=== PATIENT | male | born 1960 | race Caucasian/White ===

== ENCOUNTER 2020-04-15 04:09 | Observation (INO) | payer BC ==
--- NOTE | 2020-04-15 04:11 | ED ---
Chest Pain HPI - General Stated Complaint: CHEST PAIN Source: RN notes reviewed, old records reviewed Mode of arrival: EMS Limitations: no limitations - History of Present Illness Initial Comments: This is a 59-year-old male DF for evaluation patient from the site severe pain epigastric chest pain. Patient's pain is and persistent mildly diaphoretic shortness of breath. No fevers no significant cough or congestion currently. No significant travel history with no recent hospitalizations. Patient does suffer from heart surgery valve replacement. As well as atrial fibrillation high blood pressure on anticoagulation MD Complaint: chest pain -: hour(s) Onset: during rest, awoke with symptoms Pain Location: epigastric Severity: severe Severity scale (1-10): 8 Quality: tightness, heaviness Consistency: constant Improves With: nothing Worsens With: nothing Anginal Symptoms: nausea, diaphoresis, dyspnea Other Symptoms: palpitations Treatments Prior to Arrival: none - Related Data Home Medications Medication Instructions Recorded Confirmed Cholecalciferol [Vitamin D3 (25 1,000 unit PO DAILY 05/04/18 05/08/18 Mcg = 1000 Iu)] Pantoprazole [Protonix] 40 mg PO DAILY 05/04/18 05/08/18 Warfarin Sodium [Coumadin] 4 mg PO DAILY 05/04/18 05/08/18 Previous Rx's Medication Instructions Recorded Docusate [Colace] 100 mg PO BID #20 capsule 05/08/18 HYDROcodone/APAP 7.5-325MG [[place] 1 tab PO Q4H PRN 3 Days #18 tab 05/08/18 7.5-325] carvediloL [Coreg*] 12.5 mg PO BID-W/MEALS #60 tab 05/10/18 Allergies Allergy/AdvReac Type Severity Reaction Status Date / Time No Known Allergies Allergy Verified 05/08/18 14:56 Review of Systems ROS Statement: Those systems with pertinent positive or pertinent negative responses have been documented in the HPI. ROS Other: All systems not noted in ROS Statement are negative. EKG Findings - EKG Comments: EKG Findings:: EKG shows A. fib of 92 QRS 160 QTC 494 Past Medical History Past Medical History: Atrial Fibrillation, GERD/Reflux Additional Past Medical History / Comment(s): "fatty spots of liver", 2 bulging disc, 2 herniated disc lower back with DDD. History of Any Multi-Drug Resistant Organisms: None Reported Past Surgical History: Cardiac Ablation, Cardiac Valve Replacement Additional Past Surgical History / Comment(s): open heart with mvp replacement with maze procedure. cardioversion x2, occasional vertigo. shingles 2018 Past Anesthesia/Blood Transfusion Reactions: No Reported Reaction Past Psychological History: No Psychological Hx Reported Past Alcohol Use History: None Reported Additional Past Alcohol Use History / Comment(s): rare social smoker 20 years ago - Past Family History Father Family Medical History: Liver Disease Additional Family Medical History / Comment(s): cirrhosis liver Sister(s) Family Medical History: Cancer, COPD, Deep Vein Thrombosis (DVT) General Exam General appearance: alert, in no apparent distress, anxious Head exam: Present: atraumatic, normocephalic, normal inspection Eye exam: Present: normal appearance, PERRL, EOMI. Absent: scleral icterus, conjunctival injection, periorbital swelling ENT exam: Present: normal exam, mucous membranes moist Neck exam: Present: normal inspection. Absent: tenderness, meningismus, lymphadenopathy Respiratory exam: Present: normal lung sounds bilaterally. Absent: respiratory distress, wheezes, rales, rhonchi, stridor Cardiovascular Exam: Present: regular rate, normal rhythm, normal heart sounds. Absent: systolic murmur, diastolic murmur, rubs, gallop, clicks GI/Abdominal exam: Present: soft, normal bowel sounds. Absent: distended, tenderness, guarding, rebound, rigid Extremities exam: Present: normal inspection, full ROM, normal capillary refill. Absent: tenderness, pedal edema, joint swelling, calf tenderness Back exam: Present: normal inspection Neurological exam: Present: alert, oriented X3, CN II-XII intact Psychiatric exam: Present: normal affect, normal mood Skin exam: Present: warm, dry, intact, normal color. Absent: rash Course Vital Signs 04/15/20 04/15/20 04/15/20 04:10 04:22 04:41 Temperature 97.6 F Pulse Rate 103 H 92 95 Respiratory 18 16 18 Rate Blood Pressure 164/126 173/113 168/114 O2 Sat by Pulse 96 99 98 Oximetry 04/15/20 04/15/20 04/15/20 04:48 04:58 05:20 Temperature Pulse Rate 92 78 Respiratory 18 18 Rate Blood Pressure 165/118 156/103 155/111 O2 Sat by Pulse 100 98 Oximetry - Reevaluation(s) Reevaluation #1: 04/15/20 05:29 Medical records reviewed Reevaluation #2: 04/15/20 05:29 Blood pressure and pain control improved Reevaluation #3: 04/15/20 05:29 Patient continues here with shortness of breath. Chest pain. - Consultations Consultation #1: Spoke with Dr. Petit we will admit for cardiology to evaluate Chest Pain MDM - MDM 59 male Araceli anticoagulated coming in for chest pain observation with a mild pancreatitis. Patient be admitted for pain control Critical Care Time Critical Care Time: Yes Total Critical Care Time: 31 Disposition Clinical Impression: Chest pain, Pancreatitis, Hypertension Disposition: ADMITTED IP TO THIS [facility] Condition: Fair Is patient prescribed a controlled substance at d/c from ED?: No Referrals: Booker Martinez MD [Primary Care Provider] - 1-2 days
[2020-04-15] MEDS ORDERED: SODIUM CHLORIDE 0.9% 1,000 ML IV STA (04:20)
[2020-04-15] MEDS ORDERED: MORPHINE SULFATE 4 MG/ML SYRINGE IVP STA (04:20)
[2020-04-15] MEDS ORDERED: LABETALOL 5 MG/ML VIAL MDV IVP ONE (04:30)
[2020-04-15 04:38] LABS: Basophils # (A) 0.1 k/uL (0-0.2); Basophils % (A) 1 %; Eosinophils # (A) 0.2 k/uL (0-0.7); Eosinophils % (A) 1 %; HCT 44.7 % (39.0-53.0); HGB 15.1 gm/dL (13.0-17.5); Lymphocytes # (A) 2.1 k/uL (1.0-4.8); Lymphocytes % (A) 17 %; MCH 30.8 pg (25.0-35.0); MCHC 33.7 g/dL (31.0-37.0); MCV 91.4 fL (80.0-100.0); Mean Platelet Volume 7.8; Monocytes # (A) 1.1 k/uL (0-1.0); Monocytes % (A) 9 %; Neutrophils # (A) 8.7 k/uL (1.3-7.7); Neutrophils % (A) 71 %; Platelet Count 193 k/uL (150-450); RBC 4.89 m/uL (4.30-5.90); RDW 13.5 % (11.5-15.5); WBC 12.2 k/uL (3.8-10.6)
[2020-04-15 04:49] LABS: ALT 33 U/L (4-49); AST 29 U/L (17-59); African American GFR (CKD) >90 (>60 ml/min/1.73 sqM); Albumin 3.4 g/dL (3.5-5.0); Alkaline Phosphatase 105 U/L (38-126); Anion Gap 4 mmol/L; Blood Urea Nitrogen 21 mg/dL (9-20); Calcium 8.7 mg/dL (8.4-10.2); Carbon Dioxide 27 mmol/L (22-30); Chloride 105 mmol/L (98-107); Creatine Kinase 67 U/L (55-170); Glucose 131 mg/dL (74-99); Lipase 378 U/L (23-300); Magnesium 1.8 mg/dL (1.6-2.3); Non-African American GFR(CKD) >90 (>60 ml/min/1.73 sqM); Potassium 3.9 mmol/L (3.5-5.1); Sodium 136 mmol/L (137-145); Total Bilirubin 0.9 mg/dL (0.2-1.3); Total Protein 6.5 g/dL (6.3-8.2)
[2020-04-15 04:51] LABS: D-Dimer 0.18 mg/L FEU (<0.60); INR 2.2 (<1.2); Prothrombin Time 21.8 sec (9.0-12.0)
[2020-04-15 05:01] LABS: Creatine Kinase MB 1.4 ng/mL (0.0-2.4); Troponin I 0.013 ng/mL (0.000-0.034)
--- NOTE | 2020-04-15 05:08 | CT ---
EXAM: CT Abdomen and Pelvis With Intravenous Contrast CLINICAL HISTORY: ITS.REASON CT Reason: cp TECHNIQUE: Axial computed tomography images of the abdomen and pelvis with intravenous contrast. CTDI is 61.27 mGy and DLP is 1948.7 mGy-cm. This CT exam was performed using one or more of the following dose reduction techniques: automated exposure control, adjustment of the mA and/or kV according to patient size, and/or use of iterative reconstruction technique. COMPARISON: No relevant prior studies available. FINDINGS: Limitations: There is respiratory artifact which degrades image quality on multiple image slices. Lung bases: Unremarkable. No mass. No consolidation. Heart: Cardiomegaly, partially identified, with the right atrium and ventricle asymmetrically dilated. Evidence of mitral valve replacement. ABDOMEN: Liver: The contours of the liver are irregular and lobular in appearance in the liver is somewhat heterogeneous in appearance. There are scattered calcifications along the lateral margin of the right lobe of the liver measuring up to 11 mm in diameter. Gallbladder and bile ducts: Punctate hyperdensities noted layering posteriorly in the gallbladder. No CT evidence for pericholecystic fluid or biliary dilatation. Pancreas: Unremarkable. No mass. No ductal dilation. Spleen: Unremarkable. No splenomegaly. Adrenals: Unremarkable. No mass. Kidneys and ureters: There is cortical atrophy noted involving the superior pole the left kidney. Kidneys demonstrate normal enhancement without obstructive nephrolithiasis or hydronephrosis. Delayed phase imaging demonstrates normal excreted contrast in the renal collecting systems and proximal ureters. Stomach and bowel: No evidence for bowel obstruction or significant focal bowel mucosal abnormality. PELVIS: Appendix: A normal caliber appendix is noted inferior to the cecum in the right lower quadrant. Bladder: Unremarkable. No mass. Reproductive: Unremarkable as visualized. ABDOMEN and PELVIS: Intraperitoneal space: Unremarkable. No free air. No significant fluid collection. Bones/joints: No acute fracture. No dislocation. Soft tissues: Unremarkable. Vasculature: Unremarkable. No abdominal aortic aneurysm. Lymph nodes: Unremarkable. No enlarged lymph nodes. IMPRESSION: 1. The contours of the liver are irregular and lobular in appearance in the liver is somewhat heterogeneous in appearance. Findings are nonspecific but suggests cirrhosis. Please correlate clinically. 2. No evidence for bowel obstruction or significant focal bowel mucosal abnormality. No free intraperitoneal fluid or pneumoperitoneum. 3. Subtle hyperdensity along the posterior aspect of the gallbladder is presumed subcentimeter gallstones or hyperdense sludge. No CT evidence for pericholecystic fluid or biliary dilatation.
--- NOTE | 2020-04-15 05:11 | CT ---
EXAM: CT Angiography Chest With Intravenous Contrast CLINICAL HISTORY: ITS.REASON CT Reason: cp TECHNIQUE: Axial computed tomographic angiography images of the chest with intravenous contrast. CTDI is 13.8 mGy and DLP is 582 mGy-cm. This CT exam was performed using one or more of the following dose reduction techniques: automated exposure control, adjustment of the mA and/or kV according to patient size, and/or use of iterative reconstruction technique. MIP reconstructed images were created and reviewed. COMPARISON: No relevant prior studies available. FINDINGS: Limitations: There is respiratory artifact which degrades image quality on multiple image slices. Pulmonary arteries: No evidence for pulmonary embolism. Aorta: No acute findings. No thoracic aortic aneurysm. Lungs: Linear changes noted in the lingular segments and right lower lobe. No focal consolidation. Pleural space: Unremarkable. No significant effusion. No pneumothorax. Heart: Prominent cardiomegaly with asymmetric enlargement of the right atrium and ventricle. Evidence of mitral valve replacement. In addition, there is some reflux of contrast into the intrahepatic IVC and the hepatic veins. No pericardial effusion. Bones/joints: Intact sternotomy wires. No acute osseous abnormality. No dislocation. Soft tissues: Unremarkable. Lymph nodes: Unremarkable. No enlarged lymph nodes. IMPRESSION: 1. No evidence for pulmonary embolism. 2. Prominent cardiomegaly with asymmetric enlargement of the right atrium and ventricle. Evidence of mitral valve replacement. In addition, there is some reflux of contrast into the intrahepatic IVC and the hepatic veins. Findings are nonspecific but suggest a component of right heart dysfunction. 3. Linear changes noted in the lingular segments and right lower lobe. No focal consolidation. No pleural effusion or pneumothorax.
[2020-04-15] MEDS ORDERED: HYDROmorphone 1 MG/ML 1 ML SYRINGE IVP STA (05:25)
[2020-04-15] MEDS ORDERED: NITROGLYCERIN SL TABS 0.4 MG TAB SUBLINGUAL PRN (05:27)
[2020-04-15] MEDS ORDERED: ASPIRIN 81 MG PO STA (05:27)
[2020-04-15] MEDS ORDERED: HYDROmorphone 1 MG/ML 1 ML SYRINGE IVP PRN (05:34)
[2020-04-15] MEDS ORDERED: amLODIPine 5 MG TAB PO STA (08:13)
[2020-04-15] MEDS ORDERED: MAG HYDROX/AL HYDROX/SIMETH 30 ML CUP PO ONE (08:21)
[2020-04-15] MEDS: carvediloL 12.5 MG TAB PO SCH ×2 (08:44→17:02)
[2020-04-15] MEDS ORDERED: PANTOPRAZOLE 40 MG/10 ML VIAL IVP SCH (09:00)
[2020-04-15] MEDS ORDERED: METOPROLOL TARTRATE 25 MG TAB PO SCH (09:00)
--- NOTE | 2020-04-15 09:03 | CONS ---
CONSULTATION This is a 59-year-old obese gentleman with history of chronic atrial fibrillation, previous mitral valve repair with a right-sided chronic enlargement and pulmonary hypertension. He sees Dr. Martinez on a regular basis. He came in mostly because of an epigastric discomfort. He repeatedly insists he does not have chest pain. Pain is in the epigastric area. There is tenderness as well. With these symptoms he came in. He currently takes the Coreg, Protonix, and also Coumadin. His INR is 2.2. At the time of my evaluation, he is more comfortable, resting. Denies any chest discomfort. Abdominal pain is also better. PAST MEDICAL HISTORY: 1. Mitral valve repair in [address] [facility], details are unclear. He also had a Maze procedure. 2. History of chronic atrial fibrillation on Coumadin with recent decent rate control. 3. History of gastroesophageal reflux disease. ALLERGIES: No known allergies. MEDICATIONS: Medications include Coreg 12.5 mg b.i.d., Coumadin 4 mg daily, Protonix 40 mg daily, vitamin supplements. REVIEW OF SYSTEMS: Review of systems is remarkable for nausea and epigastric discomfort. He also has some shortness of breath, which is stable. No palpitations, syncope or near syncope and no clear-cut angina. PHYSICAL EXAMINATION: On examination, blood pressure is slightly elevated at 170/90, pulse rate is about 90 irregular. HEENT: Unremarkable. Fundus was not examined by me. NECK: Supple. There is JVD significantly elevated. No carotid bruit. HEART: Exam reveals S1, S2 with irregular rate and rhythm and systolic murmur audible at left lower sternal border. LUNGS: Reveal diminished air entry. ABDOMEN: Soft. There is epigastric tenderness. Bowel sounds are normal. Abdomen is distended. LOWER EXTREMITIES: Reveal diminished pulses. CENTRAL NERVOUS SYSTEM: Is grossly within normal limits. EKG revealed atrial fib with moderate ventricular rate, right bundle left axis nonspecific ST changes. IMPRESSION: 1. Epigastric pain, probably gastroesophageal reflux disease with some tenderness. 2. Chronic atrial fibrillation. 3. History of right-sided enlargement with a previous mitral valve repair. 4. History of gastroesophageal reflux disease. RECOMMENDATIONS: I am recommending that we give amlodipine to optimize BP control. Resume his beta earl and Protonix. I am also recommending that his Coumadin can be continued. I will recommend a GI evaluation for this patient. No intervention is necessary from a coronary disease standpoint at this time. Echocardiogram was performed in April 2018, which revealed right-sided enlargement with significant pulmonary hypertension and preserved LV systolic function. I will repeat an echocardiogram to assess LV function and right-sided pressures. I discussed my thoughts in detail with the patient. Thank you very much for the consult. MMODL / IJN: [id number] /
--- NOTE | 2020-04-15 11:00 | ECHOF ---
Referral Reason:MV repair, Hx of RVE, MEASUREMENTS -------- HEIGHT: 188.0 cm WEIGHT: 108.9 kg BP: RVIDd: 5.2 cm (< 3.3) IVSd: 1.0 cm (0.6 - 1.1) LVIDd: 4.5 cm (3.9 - 5.3) LVPWd: 1.6 cm (0.6 - 1.1) IVSs: 1.8 cm LVIDs: 3.1 cm LVPWs: 1.7 cm Ao Diam: 3.5 cm (2.0 - 3.7) AV Cusp: 2.0 cm (1.5 - 2.6) LA Diam: 5.2 cm (2.7 - 3.8) MV EXCURSION: 18.134 mm (> 18.000) MV EF SLOPE: 95 mm/s (70 - 150) EPSS: 0.7 cm RAP: 15.00 mmHg RVSP: 44.70 mmHg FINDINGS -------- Sinus rhythm. This was a techncally difficult study with suboptimal views, , Definity utilized for enhancement of i mages. The left ventricular size is normal. There is mild concentric left ventricular hypertrophy. Overa ll left ventricular systolic function is mildly impaired with, an EF between 45 - 50 %. Atypical se ptal motion. The right ventricle is severely enlarged. The right ventricular septal wall is flattened in diastol e and systole which is consistent with right ventricular volume and pressure overload. The left atrium is mildly dilated. The right atrium is markedly enlarged. There is mild aortic valve sclerosis. Mild mitral regurgitation is present. MV Repair. Severe tricuspid regurgitation present. There is moderate pulmonary hypertension. The right ventr icular systolic pressure, as measured by Doppler, is 44.70mmHg. Trace/mild (physiologic) pulmonic regurgitation. The aortic root size is normal. There is no pericardial effusion. CONCLUSIONS -------- 1. This was a techncally difficult study with suboptimal views, , Definity utilized for enhancement o f images. 2. The left ventricular size is normal. 3. There is mild concentric left ventricular hypertrophy. 4. Overall left ventricular systolic function is mildly impaired with, an EF between 45 - 50 %. 5. Atypical septal motion. 6. The right ventricle is severely enlarged. 7. The right ventricular septal wall is flattened in diastole and systole which is consistent with r ight ventricular volume and pressure overload. 8. The left atrium is mildly dilated. 9. The right atrium is markedly enlarged. 10. There is mild aortic valve sclerosis. 11. Mild mitral regurgitation is present. 12. MV Repair. 13. Severe tricuspid regurgitation present. 14. There is moderate pulmonary hypertension. 15. The right ventricular systolic pressure, as measured by Doppler, is 44.70mmHg. 16. Trace/mild (physiologic) pulmonic regurgitation. 17. The aortic root size is normal. 18. There is no pericardial effusion. [employer] MANAGER: Shelly Magallon RDCS
[2020-04-15] MEDS ORDERED: POTASSIUM CHLORIDE ER 20 MEQ TAB.ER PO STA (12:19)
[2020-04-15] MEDS ORDERED: MAGNESIUM SULFATE-D5W PMX 1 GM in DEXTROSE/WATER 1 100ML.BAG IVPB ONE (12:30)
--- NOTE | 2020-04-15 14:47 | US ---
EXAMINATION TYPE: US gallbladder DATE OF EXAM: 04/15/2020 COMPARISON: CT 04/15/2020 CLINICAL HISTORY: epigastric pain. Epigastric pain and N/V x 1 day EXAM MEASUREMENTS: Liver Length: 19.2 cm Gallbladder Wall: 0.4 cm CBD: 0.5 cm Right Kidney: 11.6 x 6.5 x 5.7 cm Pancreas: limited by overlying midline bowel gas Liver: enlarged, mildly heterogeneous, lobular contour Gallbladder: hydropic, echogenic foci along posterior gallbladder, wall mildly thickened at 0.4cm Evidence for sonographic Amaya's sign: no CBD: visualized portions wnl, limited by overlying bowel gas Right Kidney: wnl Single color Doppler image is consistent with normal portal venous flow IMPRESSION: Exam is somewhat limited. Liver shows heterogeneous echotexture, lobular contour and enla rgement, there may be underlying cirrhosis, hepatocellular disease. Cholelithiasis. Correlate to excl ude cholecystitis.
--- NOTE | 2020-04-15 15:36 | CONS ---
CONSULTATION DATE OF DICTATION: 04/15/2020 REASON FOR CONSULTATION: Epigastric pain and cirrhosis noted on recent imaging studies. HISTORY OF PRESENT ILLNESS: The patient is a 59-year-old pleasant white male with history of atrial fibrillation, on Coumadin, mitral valve repair, who came into the emergency room with acute onset of severe epigastric pain that started last night, which woke him from sleep. The pain was mostly in the epigastric area with no radiation. He had some nausea, vomiting, came to the emergency room, and symptoms are gradually improving. While in the ER, he had a CT of the abdomen and pelvis done that showed nodular-appearing liver suspicious for liver cirrhosis and some calcifications in the gallbladder suggestive of stones. This morning he is feeling better. He does have a longstanding history of GERD and he is on Protonix 40 mg daily. He never had these symptoms in the past. He denies any heartburn, reports no recent peptic ulcer disease or recent NSAID use. He is presently on Coumadin for chronic atrial fibrillation. He denies any history of chronic liver disease. No history of jaundice or hepatitis. Father was diagnosed with liver cirrhosis from alcohol use. PAST MEDICAL HISTORY: His past medical history is significant for atrial fibrillation, on Coumadin, chronic gastroesophageal reflux disease. PAST SURGICAL HISTORY: Mitral valve repair in 1999 at [facility]. MEDICATIONS: Medications at home include Coreg, Coumadin, Protonix and multivitamin. ALLERGIES: NONE. SOCIAL HISTORY: No smoking. No alcohol use. FAMILY HISTORY: Unremarkable other than dad of liver cirrhosis from alcohol use. REVIEW OF SYSTEMS: CARDIOPULMONARY: No chest pain or shortness of breath. GENITOURINARY: No dysuria or hematuria. MUSCULOSKELETAL: Unremarkable. SKIN: Unremarkable. ENDOCRINE: Unremarkable. PSYCHIATRIC: Unremarkable. NEUROLOGY: Unremarkable. ENT/VISION: Unremarkable. CONSTITUTIONAL: No recent weight loss. No fever, chills, night sweats. PHYSICAL EXAMINATION: He appears comfortable. No apparent distress. VITAL SIGNS: Stable. Blood pressure is 133/86, pulse rate 94 per minute and temperature 97.4. HEENT examination unremarkable. Conjunctivae pink. Sclerae anicteric. Oral cavity no lesions. NECK: No JVD or lymph node enlargement. CHEST: Clear to auscultation. HEART: Regular rate and rhythm. ABDOMEN: Soft. There was very minimal tenderness in the epigastric area. The rest of the abdomen was benign. Bowel sounds are positive. No organomegaly. EXTREMITIES: No pedal edema. NEUROLOGIC: He is alert and oriented x3. No focal deficits. LABS/IMAGING: WBC 12, hemoglobin 15, platelets normal. INR 2.2. BUN and creatinine are normal. ALT, AST, T-bilirubin, alkaline phosphatase are normal. Lipase is slightly elevated at 374. CT of the abdomen showed nodular surface of the liver consistent with liver cirrhosis and calcification in the gallbladder suggestive of gallstones. Chest CTA was negative. IMPRESSION: 1. This is a patient who presented with acute onset of severe epigastric pain that started last night, which woke him up from sleep. He does have a longstanding history of GERD and has been on Protonix 40 mg daily, but he never had these symptoms in the past. At this time possibility of a biliary colic from gallstones or flareup of GERD needs to be considered. Doubt peptic ulcer disease. His symptoms have improved. 2. Cirrhosis of the liver noted on imaging studies. The patient has no history of chronic liver disease in the past. No history of alcohol use. 3. History of mitral valve repair in the past. 4. Atrial fibrillation, on Coumadin. RECOMMENDATIONS: 1. Increase Protonix to 40 mg twice daily. 2. Obtain ultrasound of the gallbladder to evaluate the gallstones and to rule out any thickening of the gallbladder. 3. Increase the Protonix to 40 mg twice daily. 4. Start him on a clear liquid diet and advance as tolerated. 5. Workup for chronic liver disease. 6. If his symptoms improve, he can be discharged home in 1-2 days with outpatient followup in 2 weeks. Thank you for this consultation. Will follow with you closely. MMODL / IJN: [id number] /
--- NOTE | 2020-04-15 16:36 | P.HPIM ---
History of Present Illness H&P Date: 04/15/20 Chief Complaint: chest pain This is a 59-year-old male patient of Dr. Ocasio with a past medical history of chronic atrial fibrillation, previous mitral valve repair, and TIA. Patient presented to the hospital after he developed sudden epigastric pain with nausea and vomiting and shortness of breath. Upon arrival to the emergency department patient was found have elevated lipase at 378, slightly elevated white count at 12.2, AST 29, ALT 33. CTA of the chest was done show no evidence for pulmonary embolism, prominent cardiomegaly with a asymmetric enlargement of the right atrium and ventricle. There is some reflux of the contrast into the intrahepatic IVC and the hepatic veins, possible component of right heart dysfunction. CT of the pelvis was obtained, showed a thickened contours of the liver are irregular and lobular possible suggestive of cirrhosis, subtle hyperdensity along the posterior aspect of the gallbladder, possible gallstones or sludge. Cardiology was consulted for his chest pain, echocardiogram was obtained that showed mild concentric left ventricular hypertrophy, mildly impaired left ventricular systolic function with an EF between 45-50%, severely enlarged right ventricle, mild mitral regurgitation, mild aortic valve sclero sis, severe tricuspid regurgitation, moderate pulmonary hypertension. Will consult GI along with surgery for pancreatitis with possible gallstones. Review of Systems Constitutional: Reports fatigue, Reports poor appetite, Denies chills, Denies fever Ears, nose, mouth and throat: Denies dysphagia, Denies headache, Denies sinus pain, Denies sinus pressure, Denies sore throat Cardiovascular: Reports chest pain, Reports high blood pressure, Denies dyspnea on exertion, Denies edema, Denies leg edema, Denies orthopnea, Denies palpitations, Denies shortness of breath, Denies syncope Respiratory: Denies cough, Denies cough with sputum, Denies pain Gastrointestinal: Reports abdominal pain, Reports loss of appetite, Reports nausea, Reports vomiting, Denies constipation, Denies dyspepsia Genitourinary: Denies dysuria, Denies urinary frequency Neurological: Denies headaches, Denies numbness, Denies paresthesias, Denies syncope, Denies weakness Hematologic/Lymphatic: Denies lymphadenopathy, Denies lymphedema Past Medical History Past Medical History: Atrial Fibrillation, GERD/Reflux Additional Past Medical History / Comment(s): "fatty spots of liver", 2 bulging disc, 2 herniated disc lower back with DDD, possible TIA History of Any Multi-Drug Resistant Organisms: None Reported Past Surgical History: Cardiac Ablation, Cardiac Valve Replacement Additional Past Surgical History / Comment(s): open heart (2004) with mvp replacement with maze procedure. cardioversion x2, occasional vertigo. shingles 2018 Past Anesthesia/Blood Transfusion Reactions: No Reported Reaction Past Psychological History: No Psychological Hx Reported Smoking Status: Never smoker Past Alcohol Use History: None Reported Additional Past Alcohol Use History / Comment(s): rare social smoker 20 years ago Past Drug Use History: None Reported - Past Family History Father Family Medical History: Liver Disease Additional Family Medical History / Comment(s): cirrhosis liver Sister(s) Family Medical History: Cancer, COPD, Deep Vein Thrombosis (DVT) Mother Additional Family Medical History / Comment(s): brain hemorrhage Brother(s) Additional Family Medical History / Comment(s): brother at age 54 from [facility] Medications and Allergies Home Medications Medication Instructions Recorded Confirmed Type Cholecalciferol [Vitamin D3 (25 1,000 unit PO DAILY 05/04/18 04/15/20 History Mcg = 1000 Iu)] Pantoprazole [Protonix] 40 mg PO DAILY 05/04/18 04/15/20 History Warfarin Sodium [Coumadin] 4 mg PO HS 05/04/18 04/15/20 History Amoxicillin 500 mg PO BID 04/15/20 04/15/20 History Ascorbic Acid [Vitamin C] 1,000 mg PO DAILY 04/15/20 04/15/20 History Carvedilol [Coreg] 25 mg PO BID 04/15/20 04/15/20 History methylPREDNISolone [Medrol Dose See Taper PO DIRECTED 04/15/20 04/15/20 History Pack] Allergies Allergy/AdvReac Type Severity Reaction Status Date / Time lisinopril AdvReac Cough Verified 04/15/20 07:31 Physical Exam Vitals: Vital Signs Temp Pulse Pulse Resp BP BP Pulse Ox 04/15/20 09:54 166/106 04/15/20 09:00 20 04/15/20 08:31 97.4 F L 92 20 173/108 98 04/15/20 06:45 98 F 88 18 178/104 97 04/15/20 05:56 97.9 F 98 18 138/98 99 04/15/20 05:20 78 18 155/111 98 04/15/20 04:58 156/103 04/15/20 04:48 92 18 165/118 100 04/15/20 04:41 95 18 168/114 98 04/15/20 04:22 92 16 173/113 99 04/15/20 04:10 97.6 F 103 H 18 164/126 96 Intake and Output 04/14/20 04/15/20 04/15/20 22:59 06:59 14:59 Other: # Voids 1 Weight 108.862 kg - Constitutional General appearance: Present: average body habitus, cooperative, no acute distress - EENT Eyes: Present: EOMI, PERRLA, normal appearance - Respiratory Respiratory: bilateral: CTA, negative: diminished, dullness, rales, rhonchi, wheezing, prolonged expiration - Cardiovascular Rhythm: irregularly irregular Heart sounds: normal: S1, S2 - Gastrointestinal General gastrointestinal: Present: normal bowel sounds, tenderness. Absent: distended, hepatomegaly, organomegaly Localized gastrointestinal: tender: epigastric periumbilical - Integumentary Integumentary: Present: normal. Absent: pale, rash - Neurologic Neurologic: Present: CNII-XII intact. Absent: focal deficits - Musculoskeletal Musculoskeletal: Present: strength equal bilaterally. Absent: right sided weakness, left sided weakness - Psychiatric Psychiatric: Present: A&O x's 3, appropriate affect, intact judgment & insight - Constitutional General appearance: cooperative, no acute distress, obese - EENT Eyes: PERRLA, normal appearance ENT: hearing grossly normal, normal oropharynx, no pharyngeal erythema, no thrush - Neck Neck: no lymphadenopathy, normal ROM, no rigidity, no stridor, no thyromegaly - Respiratory Respiratory: bilateral: CTA, negative: diminished, dullness, rales, rhonchi, wheezing - Cardiovascular Rhythm: irregularly irregular Heart sounds: normal: S1, S2 - Gastrointestinal General gastrointestinal: no hepatomegaly, normal bowel sounds, no organomegaly, soft, tenderness - Neurologic Neurologic: CNII-XII intact Results CBC & Chem 7: 04/15/20 04:23 04/15/20 04:23 Labs: Abnormal Lab Results - Last 24 Hours (Table) 04/15/20 04/15/20 04/15/20 Range/Units 04:23 04:23 04:23 WBC 12.2 H (3.8-10.6) k/uL Neutrophils # 8.7 H (1.3-7.7) k/uL Monocytes # 1.1 H (0-1.0) k/uL PT 21.8 H (9.0-12.0) sec INR 2.2 H (<1.2) Sodium 136 L (137-145) mmol/L BUN 21 H (9-20) mg/dL Glucose 131 H (74-99) mg/dL Albumin 3.4 L (3.5-5.0) g/dL Lipase 378 H (23-300) U/L Thrombosis Risk Factor Assmnt - Choose All That Apply Each Factor Represents 1 point: Age 41-60 years Thrombosis Risk Factor Assessment Total Risk Factor Score: 1 Thrombosis Risk Factor Assessment Level: Low Risk Assessment and Plan Plan: 1. Abdominal pain secondary to acute pancreatitis. Possible cholelithiasis, will consult with GI along with surgery, remain NPO, continue on pantoprazole 2. Possible liver cirrhosis on CT findings. Liver enzymes are normal, will consult with GI 3. Chest pain. Serial troponin's negative x 3. Cardiology consulted, echo obtained. 4. Chronic atrial fibrillation with history of ablation and maze procedure. Continue carvedilol 25 mg twice a day along with Coumadin 5. History of Mitral valve repair in 1999. 6. GERD. Continue pantoprazole 40 mg IV daily 7. Hypertension. Norvasc 5 mg daily along with carvedilol 25 mg twice a day 8. DVT prophylaxis. Coumadin 9. GI prophylaxis. Pantoprazole The above impression and plan of care have been discussed and directed by signing physician. Gwen Barrientos nurse practitioner acting as scribe for signing physician.
[2020-04-15] MEDS ORDERED: WARFARIN 2 MG TAB PO SCH (21:00)
[2020-04-15] MEDS: PANTOPRAZOLE 40 MG/10 ML VIAL IVP SCH (21:10)
[2020-04-15 23:49] LABS: % Iron Saturation 20.06 (15.00-50.00)
[2020-04-16 00:37] LABS: Alpha Fetoprotein, Tumor Mkr 3.2 ng/mL (0.0-7.9)
[2020-04-16 02:31] LABS: Hepatitis B Surface AB- Quant 3.5 mIU/mL; Hepatitis B Surface Antibody Non-Reactive (Non-Reactive); Hepatitis B Surface Antigen Non-Reactive (Non-Reactive); Hepatitis C IgG Antibody Non-Reactive (Non-Reactive)
[2020-04-16] MEDS: carvediloL 12.5 MG TAB PO SCH (06:51)
[2020-04-16 08:03] VITALS: BP 130/85; PULSE 97; RESP 16; TEMP 97.7
[2020-04-16] MEDS: PANTOPRAZOLE 40 MG/10 ML VIAL IVP SCH (08:20)
[2020-04-16] MEDS ORDERED: amLODIPine 5 MG TAB PO SCH (09:00)
[2020-04-16] MEDS ORDERED: ASPIRIN 325 MG TAB PO SCH (09:00)
[2020-04-16 09:14] LABS: HCT 46.5 % (39.0-53.0); HGB 15.1 gm/dL (13.0-17.5); MCH 30.3 pg (25.0-35.0); MCHC 32.5 g/dL (31.0-37.0); Platelet Count 161 k/uL (150-450); WBC 12.8 k/uL (3.8-10.6)
[2020-04-16 09:20] LABS: INR 2.1 (<1.2); Prothrombin Time 20.6 sec (9.0-12.0)
[2020-04-16 09:32] LABS: ALT 34 U/L (4-49); AST 32 U/L (17-59); African American GFR (CKD) >90 (>60 ml/min/1.73 sqM); Albumin 3.4 g/dL (3.5-5.0); Alkaline Phosphatase 64 U/L (38-126); Anion Gap 5 mmol/L; Blood Urea Nitrogen 17 mg/dL (9-20); Calcium 8.5 mg/dL (8.4-10.2); Carbon Dioxide 30 mmol/L (22-30); Chloride 99 mmol/L (98-107); Cholesterol 124 mg/dL (<200); Glucose 141 mg/dL (74-99); HDL Cholesterol 41 mg/dL (40-60); LDL Cholesterol,Calculated 70 mg/dL (0-99); Lipase 163 U/L (23-300); Non-African American GFR(CKD) >90 (>60 ml/min/1.73 sqM); Sodium 134 mmol/L (137-145); Total Bilirubin 3.4 mg/dL (0.2-1.3); Total Protein 6.4 g/dL (6.3-8.2); Triglycerides 67 mg/dL (<150)
--- NOTE | 2020-04-16 09:56 | P.DS ---
Providers Date of admission: 04/15/20 05:28 Expected date of discharge: 04/16/20 Attending physician: Edenilson Rod MD Consults: 04/15/20 05:27 Consult Physician Urgent Consulting Provider: Tex Delgado Consult Reason/Comments: cp Do you want consulting provider notified?: Yes 04/15/20 11:03 Consult Physician Routine Consulting Provider: Edwige Bal Consult Reason/Comments: Fatty liver, hepatitis, gall stones Do you want consulting provider notified?: Yes 04/15/20 11:04 Consult Physician Routine Consulting Provider: Mina Bolaños Consult Reason/Comments: gall stones Do you want consulting provider notified?: Yes Primary care physician: [facility] Course: This is a 59-year-old male patient of Dr. Rod's with a past medical history of chronic atrial fibrillation, previous mitral valve repair, and TIA. Patient presented to the hospital after he developed sudden epigastric pain with nausea and vomiting and shortness of breath. Upon arrival to the emergency department patient was found have elevated lipase at 378, slightly elevated white count at 12.2, AST 29, ALT 33. CTA of the chest was done show no evidence for pulmonary embolism, prominent cardiomegaly with a asymmetric enlargement of the right atrium and ventricle. There is some reflux of the contrast into the intrahepatic IVC and the hepatic veins, possible component of right heart dysfunction. CT of the pelvis was obtained, showed a thickened contours of the liver are irregular and lobular possible suggestive of cirrhosis, subtle hyperdensity along the posterior aspect of the gallbladder, possible gallstones or sludge. Cardiology was consulted for his chest pain, echocardiogram was obtained that showed mild concentric left ventricular hypertrophy, mildly i mpaired left ventricular systolic function with an EF between 45-50%, severely enlarged right ventricle, mild mitral regurgitation, mild aortic valve sclerosis, severe tricuspid regurgitation, moderate pulmonary hypertension. Will consult GI along with surgery for pancreatitis with possible gallstones. 04/16: Patient examined at the bedside today, resting comfortably in bed, in no acute distress. He reports his epigastric pain is better today and has not had any further episodes of nausea or vomiting. Ultrasound of the gallbladder was obtained yesterday showed the liver was enlarged with the possibility of underlining cirrhosis, hepatocellular disease. Cholelithiasis, cannot exclude cholecystitis. GI consultation appreciated, Protonix was increased to 40 mg twice a day and he was started on a clear liquid diet and advanced to regular. He is tolerating foods without nausea or vomiting. Hepatitis screen was negative, and a screen negative, amylase and lipase trending down, amylase 50, lipase 163. Blood pressure better controlled with the addition to Norvasc yesterday, blood pressure today 130/81, heart rate 99, respiratory rate of 18, temperature 98.2. Patient is stable for discharge once cleared by surgery. Patient will mostly likely need cholecystectomy as outpatient, will coordinate with surgery to do possible liver biopsy at the same time. Discharge diagnoses 1. Abdominal pain secondary to acute pancreatitis and cholelithiasis. 2. Cirrhosis of the liver noted on CT findings. Will need liver biopsy as outpatient. 3. Chest pain. ACS ruled out. 4. Chronic atrial fibrillation with history of ablation and maze procedure. 5. History of Mitral valve repair in 1999. 6. GERD. 7. Hypertension. The above impression and plan of care have been discussed and directed by signing physician. Gwen Barrientos nurse practitioner acting as scribe for signing physician. Patient Condition at Discharge: Fair Plan - Discharge Summary New Discharge Prescriptions: New amLODIPine [Norvasc] 5 mg PO DAILY #30 tab Continue Pantoprazole [Protonix] 40 mg PO DAILY Cholecalciferol [Vitamin D3 (25 Mcg = 1000 Iu)] 1,000 unit PO DAILY Warfarin Sodium [Coumadin] 4 mg PO HS Carvedilol [Coreg] 25 mg PO BID Ascorbic Acid [Vitamin C] 1,000 mg PO DAILY Discontinued methylPREDNISolone [Medrol Dose Pack] See Taper PO DIRECTED Amoxicillin 500 mg PO BID Discharge Medication List Cholecalciferol [Vitamin D3 (25 Mcg = 1000 Iu)] 1,000 unit PO DAILY 05/04/18 [History] Pantoprazole [Protonix] 40 mg PO DAILY 05/04/18 [History] Warfarin Sodium [Coumadin] 4 mg PO HS 05/04/18 [History] Ascorbic Acid [Vitamin C] 1,000 mg PO DAILY 04/15/20 [History] Carvedilol [Coreg] 25 mg PO BID 04/15/20 [History] amLODIPine [Norvasc] 5 mg PO DAILY #30 tab 04/16/20 [Rx] Follow up Appointment(s)/Referral(s): Les Segal DO [Doctor of Osteopathic Medicine] - 2 Weeks Booker Martinez MD [Primary Care Provider] - 04/20/20 10:00 am (with Ghazala DEL VALLE) Edwige Bal MD [STAFF PHYSICIAN] - 2 Weeks (please call the office during office hours to schedule appointment) Patient Instructions/Handouts: Chest Pain (DC), Pancreatitis (DC), Hypertension (DC) Discharge Disposition: HOME SELF-CARE
[2020-04-16 11:11] LABS: Ceruloplasmin 19.1 mg/dL (20.0-60.0)
--- NOTE | 2020-04-16 12:27 | PN ---
PROGRESS NOTE DATE OF DICTATION: April 16, 2020 Patient is a 59-year-old pleasant white male admitted to the hospital with acute onset of severe epigastric pain that woke him up from sleep 2 days ago. His symptoms have completely subsided. Abdominal pain has resolved. Ultrasound showed multiple gallstones. CAT scan also showed cirrhosis of the liver for which he is undergoing workup. He denies any symptoms today. Overall he is feeling better. PHYSICAL EXAMINATION: Appears comfortable, no apparent distress. VITAL SIGNS: Stable. Blood pressure is 130/85, pulse rate 97, temperature 97.7. HEENT: Examination unremarkable. Conjunctivae pink. Sclerae anicteric. Oral cavity, no lesions. NECK: No JVD. No lymph node enlargement. CHEST: Clear to auscultation. HEART: Regular rate and rhythm. ABDOMEN: Soft. Bowel sounds are positive. No organomegaly. EXTREMITIES: No pedal edema. NEUROLOGIC: Alert and oriented x3. No focal deficits. LABS: Labs from today: WBC is 12.8, hemoglobin 15.1, platelets normal. INR 2.1. AST, ALT are normal. T bilirubin is 3.4 and alkaline phosphatase normal. Yesterday, T-bilirubin was 0.9. Ultrasound of the gallbladder showed multiple gallstones but no evidence of dilated ducts. Hepatitis serologies for A, B and C negative. ALYSSA is negative. AFP is normal. Iron saturation 20%. IMPRESSION: 1. Acute onset of severe epigastric pain, probably related to a biliary colic. Ultrasound did gallstones. No evidence of acute cholecystitis. Symptoms resolved. 2. Mild elevation of bilirubin but normal serum transaminases, unlikely dealing with choledocholithiasis, probably the elevated bilirubin is from underlying liver disease. 3. Newly diagnosed cirrhosis of the liver noted on imaging studies with CT of the abdomen that showed nodular liver, workup in progress. Hepatitis serologies for A, B and C are negative. ALYSSA, iron saturation, ferritin levels are normal. Rest of the workup is still pending. AFP is also normal. 4. History of atrial fibrillation on Coumadin. RECOMMENDATIONS: 1. Advance diet as tolerated. 2. He can be discharged home today. 3. Agree with surgical consultation for possible cholecystectomy in the near future. 4. We will await rest of the workup for chronic liver disease. 5. Follow up in the office in 2 weeks. Thank you for this consultation. MMODL / IJN: [id number] /
--- NOTE | 2020-04-16 16:19 | P.PN ---
Subjective HISTORY OF PRESENTING ILLNESS Patient seen and examined. Patient admits his pain is more related to epigastric pain than anything. He states that overall has improved and patient is feeling better. Patient anxious to go home. Echocardiogram was performed which showed ejection fraction 45-50% with severely enlarged RV, severe tricuspid regurgitation with RVSP of 44. Patient remains in A. fib with controlled ventricular rates. REVIEW OF SYSTEMS At the time of my exam: CONSTITUTIONAL: Denies fever or chills. CARDIOVASCULAR: Denies chest pain, shortness of breath, orthopnea, PND or palpitations. RESPIRATORY: Denies cough. GASTROINTESTINAL: Denies abdominal pain, diarrhea, constipation, nausea or vomiting. MUSCULOSKELETAL: Denies myalgias. NEUROLOGIC: Denies numbness, tingling or weakness. ENDOCRINE: Denies fatigue, weight change, polydipsia or polyurina. GENITOURINARY: Denies burning, hematuria or urgency with micturation. HEMATOLOGIC: Denies history of anemia or bleeding. PHYSICAL EXAMINATION Blood pressure [] heart rate [] afebrile and maintaining oxygen saturation on []. CONSTITUTIONAL: No apparent distress. HEENT: Head is normocephalic. Pupils are equal, round. Sclerae anicteric. Mucous membranes of the mouth are moist. No JVD. No carotid bruit. CHEST EXAMINATION: Lungs are clear to auscultation. No chest wall tenderness is noted on palpation or with deep breathing. HEART EXAMINATION: Regular rate and rhythm. S1, S2 heard. No murmurs, gallops or rub. ABDOMEN: Soft, nontender. Positive bowel sounds. EXTREMITIES: 2+ peripheral pulses, no lower extremity edema and no calf tenderness. NEUROLOGIC EXAMINATION: Patient is awake, alert and oriented x3. ASSESSMENT 1. History of mitral valve repair at [facility] with Maze procedure 2. Chronic atrial fibrillation on Coumadin, currently rate controlled 3. GERD 4. Atypical epigastric pain, do not suspect acute coronary syndrome 5. 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 Enlarged right ventricle with severe tricuspid regurgitation and RVSP of 44 7. Pulmonary hypertension PLAN Patient with mild decrease in left ventricular function with ejection fraction 45-50%. Patient appears euvolemic. Additionally he does have severe right v entricular enlargement which appears somewhat similar to prior echo. His RVSP is noted to have decreased from 75-44. This may however may be concerning if there is decrease in right ventricular function. Patient however appears euvolemic and back to his baseline. Further workup may be performed on an outpatient basis. Objective - Vital Signs Vital signs: Vital Signs Temp 97.7 F 04/16/20 08:02 Pulse 97 04/16/20 08:02 Resp 16 04/16/20 09:00 BP 130/85 04/16/20 08:02 Pulse Ox 94 L 04/16/20 08:02 Intake & Output 04/15/20 04/16/20 04/16/20 18:59 06:59 18:59 Intake Total 1200 300 Output Total 600 Balance 600 300 Intake: IV 900 Magnesium Sulfate-D5w Pmx 100 1 gm In Dextrose/Water 1 100ml.bag @ 100 mls/hr IVPB ONCE ONE Rx#: [id number] Sodium Chloride 0.9% 1, 800 000 ml @ 100 mls/hr IV . Q10H STA Rx#:[id number] Oral 300 300 Output: Urine 600 Other: Voiding Method Toilet Toilet # Voids 1 - Labs CBC & Chem 7: 04/16/20 08:42 04/16/20 08:42 Labs: Abnormal Lab Results - Last 24 Hours (Table) 04/15/20 04/15/20 04/16/20 Range/Units 04:23 04:23 08:42 WBC (3.8-10.6) k/uL PT (9.0-12.0) sec INR (<1.2) Sodium 134 L (137-145) mmol/L Glucose 141 H (74-99) mg/dL Iron 62 L (65-175) ug/dL Total Bilirubin 3.4 H (0.2-1.3) mg/dL Albumin 3.4 L (3.5-5.0) g/dL Ceruloplasmin 19.1 L (20.0-60.0) mg/dL 04/16/20 04/16/20 Range/Units 08:42 08:42 WBC 12.8 H (3.8-10.6) k/uL PT 20.6 H (9.0-12.0) sec INR 2.1 H (<1.2) Sodium (137-145) mmol/L Glucose (74-99) mg/dL Iron (65-175) ug/dL Total Bilirubin (0.2-1.3) mg/dL Albumin (3.5-5.0) g/dL Ceruloplasmin (20.0-60.0) mg/dL
--- NOTE | 2020-04-19 16:46 | P.GSCN ---
History of Present Illness Consult date: 04/16/20 History of present illness: 59 year old male who presented to the hospital with abdominal pain. He has a history of afib for which he is on Coumadin. US showed gallstones with no ductal dilation and no signs of acute cholecystitis. CT and ultrasound both also showed liver suspicious of cirrhosis. He deneis any history of etoh abuse. no history of hepatitis. Past Medical History Past Medical History: Atrial Fibrillation, GERD/Reflux Additional Past Medical History / Comment(s): "fatty spots of liver", 2 bulging disc, 2 herniated disc lower back with DDD, possible TIA History of Any Multi-Drug Resistant Organisms: None Reported Past Surgical History: Cardiac Ablation, Cardiac Valve Replacement Additional Past Surgical History / Comment(s): open heart (2004) with mvp replacement with maze procedure. cardioversion x2, occasional vertigo. shingles 2018 Past Anesthesia/Blood Transfusion Reactions: No Reported Reaction Past Psychological History: No Psychological Hx Reported Smoking Status: Never smoker Past Alcohol Use History: None Reported Additional Past Alcohol Use History / Comment(s): rare social smoker 20 years ago Past Drug Use History: None Reported - Past Family History Father Family Medical History: Liver Disease Additional Family Medical History / Comment(s): cirrhosis liver Sister(s) Family Medical History: Cancer, COPD, Deep Vein Thrombosis (DVT) Mother Additional Family Medical History / Comment(s): brain hemorrhage Brother(s) Additional Family Medical History / Comment(s): brother at age 54 from [facility] Medications and Allergies Home Medications Medication Instructions Recorded Confirmed Type Cholecalciferol [Vitamin D3 (25 1,000 unit PO DAILY 05/04/18 04/15/20 History Mcg = 1000 Iu)] Pantoprazole [Protonix] 40 mg PO DAILY 05/04/18 04/15/20 History Warfarin Sodium [Coumadin] 4 mg PO HS 05/04/18 04/15/20 History Ascorbic Acid [Vitamin C] 1,000 mg PO DAILY 04/15/20 04/15/20 History Carvedilol [Coreg] 25 mg PO BID 04/15/20 04/15/20 History amLODIPine [Norvasc] 5 mg PO DAILY #30 tab 04/16/20 Rx Allergies Allergy/AdvReac Type Severity Reaction Status Date / Time lisinopril AdvReac Cough Verified 04/15/20 07:31 Surgical - Exam Osteopathic Statement: *. No significant issues noted on an osteopathic str uctural exam other than those noted in the History and Physical/Consult. Vital Signs Temp Pulse Resp BP Pulse Ox 97.6 F 103 H 18 164/126 96 04/15/20 04:10 04/15/20 04:10 04/15/20 04:10 04/15/20 04:10 04/15/20 04:10 - General well developed, well nourished, no distress - Abdomen Abdomen: soft, non tender - Psychiatric oriented to time, oriented to person, oriented to place Results - Labs 04/16/20 08:42 04/16/20 08:42 Assessment and Plan Assessment: Cirrhosis hyperbilirubenemia cholelithiasis Plan: I had a discussion with the patient regarding his liver enzymes and findings of cirrhosis on imaging. Patient has asymtomatic cholelithiasis at this time, no signs of acute cholecystitis. He is going to be worked up with GI as an outpatient for his cirrhosis. I do not recommend acute surgical intervention at this time due to the new history of cirrhosis
== END 2020-04-16 14:20 | disposition home or self-care (01) ==
LOC: EC 04:09 → 1SOBS 05:28
PROVIDERS: ADMIT Internal Medicine; ATTEND Internal Medicine
DX: K85.10 Biliary acute pancreatitis without necrosis or infection (principal); R07.89 Other chest pain; K80.20 Calculus of gallbladder without cholecystitis without obstruction; I48.20 Chronic atrial fibrillation, unspecified; I27.20 Pulmonary hypertension, unspecified; K74.60 Unspecified cirrhosis of liver; K76.0 Fatty (change of) liver, not elsewhere classified; I10 Essential (primary) hypertension; K21.9 Gastro-esophageal reflux disease without esophagitis; M51.26 Other intervertebral disc displacement, lumbar region; M51.36 Other intervertebral disc degeneration, lumbar region; I07.1 Rheumatic tricuspid insufficiency; Z79.01 Long term (current) use of anticoagulants; Z79.899 Other long term (current) drug therapy; Z88.8 Allergy status to other drugs, medicaments and biological substances; Z95.2 Presence of prosthetic heart valve; Z86.19 Personal history of other infectious and parasitic diseases; Z87.891 Personal history of nicotine dependence; Z86.73 Personal history of transient ischemic attack (TIA), and cerebral infarction without residual deficits; Z82.5 Family history of asthma and other chronic lower respiratory diseases; Z83.79 Family history of other diseases of the digestive system; Z82.49 Family history of ischemic heart disease and other diseases of the circulatory system; Z80.9 Family history of malignant neoplasm, unspecified; Z82.0 Family history of epilepsy and other diseases of the nervous system; Z81.1 Family history of alcohol abuse and dependence
CPT/HCPCS: 93005 ×3; 96361 ×3; 96365; 96376 ×2; 96375; 99291; 36415; 93306; 86803; 85379; 83880; 80061; 80053 ×2; 82150; 82550; 82553; 83540; 83550; 83690 ×2; 83735; 84484; 85025; 85027; 85610 ×2; 85730; 86706; 87340; 82103; 82105; 82390; 86038; 76705; 71275; 74177; G0378 ×2; J2270; J1170; J3475; C9113 ×2; Q9967

== ENCOUNTER → 2020-09-16 | Outpatient (CLI) | payer BC ==
[2020-09-16 10:51] LABS: HCT 42.8 % (39.6-50.0); HGB 14.1 g/dL (13.0-17.0); MCH 29.4 pg (27.0-32.0); MCHC 32.9 g/dL (32.0-37.0); MCV 89.2 fL (80.0-97.0); Mean Platelet Volume 10.9 fL (9.5-12.2); Platelet Count 201 X 10*3/uL (140-440); RDW 13.4 % (11.5-14.5); WBC 5.64 X 10*3/uL (4.50-10.00)
[2020-09-16 11:11] LABS: INR 1.91 (0.90-1.11)
[2020-09-16 12:09] LABS: % Iron Saturation 17.85 (15.00-50.00); African American GFR (CKD) 94.4 (60.0-200.0); Albumin 4.3 g/dL (3.80-4.90); Albumin/Globulin Ratio 1.48 (1.60-3.17); Anion Gap 8.2 mmol/L (4.00-12.00); Carbon Dioxide 27.8 mmol/L (21.6-31.8); Globulin 2.9 g/dL (1.6-3.3); Non-African American GFR(CKD) 81.4 (60.0-200.0); Potassium 3.9 mmol/L (3.5-5.5); Total Bilirubin 1.2 mg/dL (0.2-1.2); Total Protein 7.2 g/dL (6.2-8.2)
[2020-09-16 12:17] LABS: Ferritin 80.3 ng/mL (22.0-322.0)
== END | disposition home or self-care (01) ==
LOC: LABWHC1 07:21
PROVIDERS: ATTEND Internal Medicine Gastroenterology
DX: K74.60 Unspecified cirrhosis of liver (principal)
CPT/HCPCS: 36415; 80053; 82105; 82728; 83516; 83540; 83550; 85027; 85610

== ENCOUNTER → 2021-03-17 | Outpatient (CLI) | payer BC ==
[2021-03-17 14:39] LABS: HCT 43.5 % (39.6-50.0); HGB 14.1 g/dL (13.0-17.0); MCH 29.7 pg (27.0-32.0); MCHC 32.4 g/dL (32.0-37.0); MCV 91.8 fL (80.0-97.0); Mean Platelet Volume 10.5 fL (9.5-12.2); Platelet Count 178 X 10*3/uL (140-440); RBC 4.74 X 10*6/uL (4.40-5.60); RDW 13.9 % (11.5-14.5); WBC 5.45 X 10*3/uL (4.50-10.00)
[2021-03-17 14:57] LABS: INR 1.83 (0.90-1.11); Prothrombin Time 19.6 sec (9.9-11.9)
[2021-03-17 15:11] LABS: African American GFR (CKD) 107.2 (60.0-200.0); Albumin 4.1 g/dL (3.8-4.9); Albumin/Globulin Ratio 1.58 (1.60-3.17); Anion Gap 9.8 mmol/L (10.00-18.00); BUN/Creat Ratio 12.67 Ratio (12.00-20.00); Blood Urea Nitrogen 11.4 mg/dL (9.0-27.0); Calcium 8.8 mg/dL (8.7-10.3); Carbon Dioxide 25.2 mmol/L (20.0-27.5); Globulin 2.6 g/dL (1.6-3.3); Non-African American GFR(CKD) 92.5 (60.0-200.0); Potassium 3.9 mmol/L (3.5-5.5); Total Bilirubin 1.9 mg/dL (0.30-1.20); Total Protein 6.7 g/dL (6.2-8.2)
== END | disposition home or self-care (01) ==
LOC: LABWHC1 09:42
PROVIDERS: ATTEND Internal Medicine Gastroenterology
DX: K74.60 Unspecified cirrhosis of liver (principal)
CPT/HCPCS: 36415; 80053; 82105; 85027; 85610

== ENCOUNTER 2023-06-02 18:18 | Emergency (ER) | payer BC ==
[2023-06-02 18:48] VITALS: RESP 20
[2023-06-02 19:13] LABS: Basophils % (A) 1 %; Eosinophils # (A) 0.4 k/uL (0-0.7); Eosinophils % (A) 6 %; HGB 14.4 gm/dL (13.0-17.5); Lymphocytes # (A) 1.3 k/uL (1.0-4.8); Lymphocytes % (A) 21 %; MCHC 35.9 g/dL (31.0-37.0); MCV 91.9 fL (80.0-100.0); Mean Platelet Volume 8.5; Monocytes # (A) 0.7 k/uL (0-1.0); Monocytes % (A) 11 %; Neutrophils # (A) 3.7 k/uL (1.3-7.7); Neutrophils % (A) 59 %; Platelet Count 172 k/uL (150-450); RBC 4.35 m/uL (4.30-5.90); RDW 12.9 % (11.5-15.5); WBC 6.3 k/uL (3.8-10.6)
--- NOTE | 2023-06-02 19:13 | XR ---
EXAMINATION TYPE: XR chest 2V DATE OF EXAM: 06/02/2023 COMPARISON: CTA chest April 15, 2020 HISTORY: Chest pain TECHNIQUE: Frontal and lateral views of the chest are obtained. FINDINGS: Overlying sternal wires along with cardiac valve surgical changes are redemonstrated. There is no suspicious new focal air space opacity, pleural effusion, or pneumothorax seen. Cardiomegaly i s redemonstrated. The osseous structures are intact. IMPRESSION: Cardiomegaly without acute pulmonary process.
[2023-06-02 19:25] LABS: ALT 49 U/L (4-49); AST 46 U/L (17-59); African American GFR (CKD) >90 (>60 ml/min/1.73 sqM); Albumin 4.1 g/dL (3.5-5.0); Alkaline Phosphatase 81 U/L (38-126); Anion Gap 4 mmol/L; Blood Urea Nitrogen 16 mg/dL (9-20); Calcium 8.9 mg/dL (8.4-10.2); Carbon Dioxide 30 mmol/L (22-30); Chloride 103 mmol/L (98-107); Glucose 95 mg/dL (74-99); Non-African American GFR(CKD) 86 (>60 ml/min/1.73 sqM); Potassium 3.9 mmol/L (3.5-5.1); Sodium 137 mmol/L (137-145); Total Bilirubin 1.2 mg/dL (0.2-1.3); Total Protein 7.4 g/dL (6.3-8.2)
[2023-06-02 19:26] LABS: Partial Thromboplastin Time 37.4 sec (22.0-30.0); Prothrombin Time 29.6 sec (10.0-12.5)
--- NOTE | 2023-06-02 19:31 | ED ---
General Adult HPI - General Chief complaint: Chest Pain Stated complaint: sob Time Seen by Provider: 06/02/23 18:27 Source: patient, RN notes reviewed, old records reviewed Mode of arrival: ambulatory Limitations: no limitations - History of Present Illness Initial comments: 62 yo-year-old male presenting for evaluation of chest discomfort and near sync ope. Patient was at work, had bent over feeling lightheaded and was subsequently developed chest discomfort and pressure. No diaphoresis. No vomiting. No fever. No cough. - Related Data Home Medications Medication Instructions Recorded Confirmed Cholecalciferol [Vitamin D3 (25 1,000 unit PO DAILY 05/04/18 04/15/20 Mcg = 1000 Iu)] Pantoprazole [Protonix] 40 mg PO DAILY 05/04/18 04/15/20 Warfarin Sodium [Coumadin] 4 mg PO HS 05/04/18 04/15/20 Ascorbic Acid [Vitamin C] 1,000 mg PO DAILY 04/15/20 04/15/20 carvediloL [Coreg] 25 mg PO BID 04/15/20 04/15/20 Previous Rx's Medication Instructions Recorded amLODIPine [Norvasc] 5 mg PO DAILY #30 tab 04/16/20 Allergies Allergy/AdvReac Type Severity Reaction Status Date / Time lisinopril AdvReac Cough Verified 06/02/23 18:25 Review of Systems ROS Statement: Those systems with pertinent positive or pertinent negative responses have been documented in the HPI. ROS Other: All systems not noted in ROS Statement are negative. Past Medical History Past Medical History: Atrial Fibrillation, GERD/Reflux Additional Past Medical History / Comment(s): "fatty spots of liver", 2 bulging disc, 2 herniated disc lower back with DDD, possible TIA History of Any Multi-Drug Resistant Organisms: None Reported Past Surgical History: Cardiac Ablation, Cardiac Valve Replacement Additional Past Surgical History / Comment(s): open heart (2004) with mvp replacement with maze procedure. cardioversion x2, occasional vertigo. arti story 2018 Past Anesthesia/Blood Transfusion Reactions: No Reported Reaction Past Psychological History: No Psychological Hx Reported Smoking Status: Never smoker Past Alcohol Use History: Occasional Past Drug Use History: None Reported - Past Family History Father Family Medical History: Liver Disease Additional Family Medical History / Comment(s): cirrhosis liver Sister(s) Family Medical History: Cancer, COPD, Deep Vein Thrombosis (DVT) Mother Additional Family Medical History / Comment(s): brain hemorrhage Brother(s) Additional Family Medical History / Comment(s): brother at age 54 [facility]'s General Exam Limitations: no limitations General appearance: alert, in no apparent distress Head exam: Present: atraumatic, normocephalic Eye exam: Present: normal appearance, PERRL ENT exam: Present: normal exam Neck exam: Present: normal inspection. Absent: tenderness, meningismus Respiratory exam: Present: normal lung sounds bilaterally. Absent: respiratory distress, wheezes Cardiovascular Exam: Present: regular rate, irregular rhythm GI/Abdominal exam: Present: soft. Absent: distended, tenderness, guarding Extremities exam: Present: normal inspection, normal capillary refill. Absent: calf tenderness Neurological exam: Present: alert, oriented X3, CN II-XII intact. Absent: motor sensory deficit Psychiatric exam: Present: normal affect, normal mood Skin exam: Present: warm, dry, intact. Absent: cyanosis, diaphoretic Course Vital Signs 06/02/23 18:23 Temperature 98.4 F Pulse Rate 80 Respiratory 20 Rate Blood Pressure 143/83 O2 Sat by Pulse 99 Oximetry - Reevaluation(s) Reevaluation #1: 06/02/23 20:04 Patient asymptomatic, eager for discharge. Medical Decision Making - Medical Decision Making Was pt. sent in by a medical professional or institution (, PA, HIGH SCHOOL SCIENCE TEACHER, urgent care, hospital, or skilled nursing...) When possible be specific @ -No Did you speak to anyone other than the patient for history (EMS, parent, family, police, friend...)? What history was obtained from this source @ -No Did you review nursing and triage notes (agree or disagree)? Why? @ -I reviewed and agree with nursing and triage notes Were old charts reviewed (outside hosp., previous admission, EMS record, old EKG, old radiological studies, urgent care reports/EKG's, skilled nursing records)? Report findings @ -No old charts were reviewed Differential Diagnosis (chest pain, altered mental status, abdominal pain women, abdominal pain men, vaginal bleeding, weakness, fever, dyspnea, syncope, headache, dizziness, GI bleed, back pain, seizure, CVA, palpatations, mental health, musculoskeletal)? @Differential Chest Pain: Stable Angina, Unstable Angina, STEMI, NSTEMI Aortic Dissection, Pneumothorax, Musculoskeletal, Esophageal Spasm GERD, Cholecystitis, Pancreatitis, Zoster, this is not meant to be an all-inclusive list. EKG interpreted by me (3pts min.). @ -Atrial fibrillation, right bundle branch block no ST segment elevation. Rate of 75, QRS duration 176, QTc 471. X-rays interpreted by me (1pt min.). @ -Chest x-ray showing cardiomegaly without acute findings. CT interpreted by me (1pt min.). @ -None done U/S interpreted by me (1pt. min.). @ -None done What testing was considered but not performed or refused? (CT, X-rays, U/S, labs)? Why? @ -None What meds were considered but not given or refused? Why? @ -None Did you discuss the management of the patient with other professionals (professionals i.e. , PA, HIGH SCHOOL SCIENCE TEACHER, lab, RT, psych nurse, rn social services, research statistician, teacher, logistics supply officer, pillowcase cutter)? Give summary @ -No Was smoking cessation discussed for >3mins.? @ -No Was critical care preformed (if so, how long)? @ -No Were there social determinants of health that impacted care today? How? (Homelessness, low income, unemployed, alcoholism, drug addiction, transportation, low edu. Level, literacy, decrease access to med. care, fpc, rehab)? @ -No Was there de-escalation of care discussed even if they declined (Discuss DNR or withdrawal of care, Hospice)? DNR status @ -No What co-morbidities impacted this encounter? (DM, HTN, Smoking, COPD, CAD, Cancer, CVA, ARF, Chemo, Hep., AIDS, mental health diagnosis, sleep apnea, morbid obesity)? @ -Atrial fibrillation Was patient admitted / discharged? Hospital course, mention meds given and route, prescriptions, significant lab abnormalities, going to OR and other pertinent info. @ -[62-year-old male with an episode of dizziness, lightheadedness, chest discomfort. Patient asymptomatic upon arrival. He is in rate controlled A-fib. Chest x-ray is clear. He has normal CBC, normal CMP, therapeutic INR. He is reevaluated and is asymptomatic. He is offered an observation with telemetry, cardiac consultation. Declined states he will return if symptoms return. Undiagnosed new problem with uncertain prognosis? @ -No Drug Therapy requiring intensive monitoring for toxicity (Heparin, Nitro, Insulin, Cardizem)? @ -No Were any procedures done? @ -No Diagnosis/symptom? @ -[Chest pain, lightheaded Acute, or Chronic, or Acute on Chronic? @ -Acute Uncomplicated (without systemic symptoms) or Complicated (systemic symptoms)? @ -[default Side effects of treatment? @ -No Exacerbation, Progression, or Severe Exacerbation? @ -No Poses a threat to life or bodily function? How? (Chest pain, [place], [place], pneumonia, PE, COPD, DKA, ARF, appy, cholecystitis, CVA, Diverticulitis, Homicidal, Suicidal, threat to staff... and all critical care pts) @ -Low risk at this time - Lab Data Result diagrams: 06/02/23 18:56 06/02/23 18:56 Lab Results 06/02/23 06/02/23 06/02/23 Range/Units 18:56 18:56 18:56 WBC 6.3 (3.8-10.6) k/uL RBC 4.35 (4.30-5.90) m/uL Hgb 14.4 (13.0-17.5) gm/dL Hct 40.0 (39.0-53.0) % MCV 91.9 (80.0-100.0) fL MCH 33.0 (25.0-35.0) pg MCHC 35.9 (31.0-37.0) g/dL RDW 12.9 (11.5-15.5) % Plt Count 172 (150-450) k/uL MPV 8.5 Neutrophils % 59 % Lymphocytes % 21 % Monocytes % 11 % Eosinophils % 6 % Basophils % 1 % Neutrophils # 3.7 (1.3-7.7) k/uL Lymphocytes # 1.3 (1.0-4.8) k/uL Monocytes # 0.7 (0-1.0) k/uL Eosinophils # 0.4 (0-0.7) k/uL Basophils # 0.0 (0-0.2) k/uL PT 29.6 H (10.0-12.5) sec INR 3.0 H (<1.2) APTT 37.4 H (22.0-30.0) sec Sodium 137 (137-145) mmol/L Potassium 3.9 (3.5-5.1) mmol/L Chloride 103 (98-107) mmol/L Carbon Dioxide 30 (22-30) mmol/L Anion Gap 4 mmol/L BUN 16 (9-20) mg/dL Creatinine 0.95 (0.66-1.25) mg/dL Est GFR (CKD-EPI)AfAm >90 (>60 ml/min/1.73 sqM) Est GFR (CKD-EPI)NonAf 86 (>60 ml/min/1.73 sqM) Glucose 95 (74-99) mg/dL Calcium 8.9 (8.4-10.2) mg/dL Magnesium 2.0 (1.6-2.3) mg/dL Total Bilirubin 1.2 (0.2-1.3) mg/dL AST 46 (17-59) U/L ALT 49 (4-49) U/L Alkaline Phosphatase 81 (38-126) U/L Troponin I (0.000-0.034) ng/mL Total Protein 7.4 (6.3-8.2) g/dL Albumin 4.1 (3.5-5.0) g/dL 06/02/23 Range/Units 18:56 WBC (3.8-10.6) k/uL RBC (4.30-5.90) m/uL Hgb (13.0-17.5) gm/dL Hct (39.0-53.0) % MCV (80.0-100.0) fL MCH (25.0-35.0) pg MCHC (31.0-37.0) g/dL RDW (11.5-15.5) % Plt Count (150-450) k/uL MPV Neutrophils % % Lymphocytes % % Monocytes % % Eosinophils % % Basophils % % Neutrophils # (1.3-7.7) k/uL Lymphocytes # (1.0-4.8) k/uL Monocytes # (0-1.0) k/uL Eosinophils # (0-0.7) k/uL Basophils # (0-0.2) k/uL PT (10.0-12.5) sec INR (<1.2) APTT (22.0-30.0) sec Sodium (137-145) mmol/L Potassium (3.5-5.1) mmol/L Chloride (98-107) mmol/L Carbon Dioxide (22-30) mmol/L Anion Gap mmol/L BUN (9-20) mg/dL Creatinine (0.66-1.25) mg/dL Est GFR (CKD-EPI)AfAm (>60 ml/min/1.73 sqM) Est GFR (CKD-EPI)NonAf (>60 ml/min/1.73 sqM) Glucose (74-99) mg/dL Calcium (8.4-10.2) mg/dL Magnesium (1.6-2.3) mg/dL Total Bilirubin (0.2-1.3) mg/dL AST (17-59) U/L ALT (4-49) U/L Alkaline Phosphatase (38-126) U/L Troponin I <0.012 (0.000-0.034) ng/mL Total Protein (6.3-8.2) g/dL Albumin (3.5-5.0) g/dL Disposition Clinical Impression: Chest pain Disposition: HOME SELF-CARE Condition: Fair Instructions (If sedation given, give patient instructions): Chest Pain (ED) Is patient prescribed a controlled substance at d/c from ED?: No Referrals: Booker Martinez MD [Primary Care Provider] - 1-2 days Time of Disposition: 20:06
[2023-06-02 20:34] VITALS: BP 140/80; PULSE 78; TEMP 98.9
== END 2023-06-02 20:47 | disposition home or self-care (01) ==
LOC: EC 18:18
DX: R07.89 Other chest pain (principal); I45.10 Unspecified right bundle-branch block; I48.91 Unspecified atrial fibrillation; K21.9 Gastro-esophageal reflux disease without esophagitis; Z79.899 Other long term (current) drug therapy; Z79.02 Long term (current) use of antithrombotics/antiplatelets; Z88.8 Allergy status to other drugs, medicaments and biological substances
CPT/HCPCS: 36415; 71046; 80053; 83735; 84484; 85025; 85610; 85730; 93005; 99285

== ENCOUNTER → 2023-06-16 | Outpatient (CLI) | payer BC ==
[2023-06-16 11:01] VITALS: BP 135/87; PULSE 88; RESP 16; TEMP 97.7
--- NOTE | 2023-06-16 11:03 | P.GSHP ---
History of Present Illness H&P Date: 06/16/23 Chief Complaint: mass right breast Arthur is a 62 year old male seen in consultation for Dr. Martinez regarding a mass in his left breast. He had a right breast ultrasound done on 05-15-23 which showed a 1.3 by .9 cm irregular lesion behind the right aerola. The patient n oted this area about 7 weeks ago. It has not increased in size. The nipple felt sensitive. He has not noted anything in the left breast. He has not had any surgery on his breast. No recent change in medication. He does take spironolactone, protonix, Caffiene: 2 bottles of coke daily nicotine: none hormones: none chocolate: occasional Family History: sister: lung cancer father: of chirosis he was a heavy drinker Surgical History: open heart surgery: mitral valve repair multiple conversions ablation umbilical hernia gallbladder open Medical History: heart disease Social History: nicotine: none alcohol: beer occasional drugs: none - Constitutional Constitutional: Denies chills, Denies fever - EENT Eyes: denies blurred vision, denies pain Ears: deny: decreased hearing, tinnitus Ears, nose, mouth and throat: Denies headache, Denies sore throat - Breasts Breasts: bilateral: as per HPI - Cardiovascular Cardiovascular: Reports as per HPI - Respiratory Respiratory: Denies cough, Denies 7 - Gastrointestinal Gastrointestinal: Denies abdominal pain, Denies diarrhea, Denies nausea, Denies vomiting - Genitourinary (Male) Genitourinary: Denies dysuria, Denies hematuria - Musculoskeletal Comment: spasms at times in upper thighs - Integumentary Integumentary: Denies pruritus, Denies rash - Neurological Neurological: Denies numbness, Denies weakness - Psychiatric Psychiatric: Denies anxiety, Denies depression - Endocrine Endocrine: Denies fatigue, Denies weight change - Hematologic/Lymphatic Comment: warfin daily - Allergic/Immunologic Allergic/Immunologic: Reports as per HPI Past Medical History Past Medical History: Atrial Fibrillation, GERD/Reflux Additional Past Medical History / Comment(s): "fatty spots of liver", 2 bulging disc, 2 herniated disc lower back with DDD, possible TIA History of Any Multi-Drug Resistant Organisms: None Reported Past Surgical History: Cardiac Ablation, Cardiac Valve Replacement Additional Past Surgical History / Comment(s): open heart (2004) with mvp replacement with maze procedure. cardioversion x2, occasional vertigo. shingles 2018 Past Anesthesia/Blood Transfusion Reactions: No Reported Reaction Past Psychological History: No Psychological Hx Reported Smoking Status: Never smoker Past Alcohol Use History: Occasional Additional Past Alcohol Use History / Comment(s): rare social smoker 20 years ago Past Drug Use History: None Reported - Past Family History Father Family Medical History: Liver Disease Additional Family Medical History / Comment(s): cirrhosis liver Sister(s) Family Medical History: Cancer, COPD, Deep Vein Thrombosis (DVT) Mother Additional Family Medical History / Comment(s): brain hemorrhage Brother(s) Additional Family Medical History / Comment(s[facility] age 54 [facility] Medications and Allergies Home Medications Medication Instructions Recorded Confirmed Type Cholecalciferol [Vitamin D3 (25 1,000 unit PO DAILY 05/04/18 06/16/23 History Mcg = 1000 Iu)] Pantoprazole [Protonix] 40 mg PO DAILY 05/04/18 06/16/23 History Warfarin Sodium [Coumadin] 4 mg PO HS 05/04/18 06/16/23 History Ascorbic Acid [Vitamin C] 1,000 mg PO DAILY 04/15/20 06/16/23 History carvediloL [Coreg] 25 mg PO BID 04/15/20 06/16/23 History amLODIPine [Norvasc] 5 mg PO DAILY #30 tab 04/16/20 06/16/23 Rx Allergies Allergy/AdvReac Type Severity Reaction Status Date / Time lisinopril AdvReac Cough Verified 06/16/23 10:36 Surgical - Exam Vital Signs Temp Pulse Resp BP Pulse Ox 97.7 F 88 16 135/87 98 06/16/23 10:36 06/16/23 10:36 06/16/23 10:36 06/16/23 10:36 06/16/23 10:36 - General no distress - Eyes normal ocular movement - Neck trachea midline - Respiratory normal respiratory effort, clear to auscultation - Cardiovascular Heart Sounds: normal: S1, S2 - Abdomen Abdomen: soft, non tender, no guarding, no rigid, no rebound - Genitourinary no testicular masses testicles present - Integumentary normal turgor - Musculoskeletal normal gait - Psychiatric oriented to time, oriented to person, oriented to place, speech is normal, memory intact breast exam: Inspection: No skin lesions of concern Palpation: Right breast: Multi positional exam approximately 1 x 1 cm fullness behind the right nipple areolar complex Right axilla: No adenopathy of concern Left breast: Multi positional exam no dominant masses or nodules of concern Left axilla: No adenopathy of concern Testicular exam: No masses lumps or nodules of concern on the right or left testicle Results Ultrasound results reviewed of the right breast Assessment and Plan Assessment: Impression: Right breast mass posterior to the nipple areolar complex most likely gynecomastia Plan: Bilateral mammogram Consider right breast ultrasound-guided core biopsy Follow-up after above done CC: Dr. Martinez
== END | disposition home or self-care (01) ==
LOC: WWCWWP 10:26
PROVIDERS: ATTEND Surgery
DX: I48.91 Unspecified atrial fibrillation (principal); K21.9 Gastro-esophageal reflux disease without esophagitis; K76.0 Fatty (change of) liver, not elsewhere classified; N63.10 Unspecified lump in the right breast, unspecified quadrant; N63.20 Unspecified lump in the left breast, unspecified quadrant; M51.36 Other intervertebral disc degeneration, lumbar region; Z88.8 Allergy status to other drugs, medicaments and biological substances; Z87.891 Personal history of nicotine dependence; Z95.2 Presence of prosthetic heart valve

== ENCOUNTER → 2023-06-19 | Outpatient (CLI) | payer BC ==
--- NOTE | 2023-06-19 10:49 | MM ---
Reason for Exam: Clinical finding. Tissue Density: The breast tissue is almost entirely fat. Findings: Analyzed By CAD. There is a focal area of increased density in the subareolar right breast. Right breast is smaller than the left breast. No definite nipple retraction is identified. Limited posterior visualization of the dense border. Exam is correlated with the ultrasound obtained from [facility]. Overall Assessment: Suspicious, BI-RAD 4 Management: Surgical Consultation of the right breast. Ultrasound Core Biopsy of the right breast. . Results were given to the patient verbally at the time of exam. Patient should continue monthly self-breast exams. A clinical breast exam by your physician is recommended on an annual basis. This exam should not preclude additional follow-up of suspicious palpable abnormalities. Note on Stephanie scores and lifetime risk: 1. A Stephanie score greater than 3% is considered moderate risk. If this is the case, consider specialist referral to assess eligibility for a risk reducing agent. 2. If overall lifetime risk for the development of breast cancer is 20% or higher, the patient may qualify for future screening with alternating mammogram and breast MRI. Electronically signed and approved by: Arthur Ignacio D.O. Radiologis
== END | disposition home or self-care (01) ==
LOC: RADMAMWWP 09:31
PROVIDERS: ATTEND Surgery
DX: N63.41 Unspecified lump in right breast, subareolar (principal)
CPT/HCPCS: 77062; 77066

== ENCOUNTER → 2023-06-27 | Day surgery (SDC) | payer BC ==
[2023-06-27 13:15] LABS: INR 1.2 (<1.2); Partial Thromboplastin Time 24.7 sec (22.0-30.0); Prothrombin Time 12.4 sec (10.0-12.5)
--- NOTE | 2023-07-03 10:12 | USB ---
Prior Study Comparison: 06/19/2023 Bilateral MG 3D diag mammo w/cad [facility], [facility]. Pathology Description: Location: retroareolar. Marker Left Behind. Needle Type: Celero Cores: 2 Gauge: 12 The procedure of ultrasound guided core biopsy was explained to the patient. Benefits, alternatives, and risks were discussed. An informed consent was then obtained. The patient was placed in supine positioning for imaging and for the procedure. The overlying skin was prepped and draped in usual sterile fashion. Lidocaine buffered with bicarbonate was used as anesthetic into the skin and subcutaneous tissue up to area of concern in the retroareolar right breast. A yumiko was made with surgical scalpel. Under ultrasound guidance, a 12-gauge vacuum assisted biopsy gun device was used to obtain 2 core samples. Following this, a biopsy clip was left in lesion. The patient tolerated the procedure well without any immediate complication. The patient was kept in the radiology department for short stay after the procedure and then discharged home in stable condition. Postprocedure mammogram: The patient was transferred to mammography for physician ordered post procedure mammogram for clip placement verification. Impression: Successful, uncomplicated ultrasound guided core biopsy of area of concern in the retroareolar right breast, full pathology results to follow. Pathology Results: Result: Benign, Gynecomastia. RIGHT BREAST, POSTERIOR NIPPLE, NEEDLE CORE BIOPSY: Gynecomastia. Overall Assessment: Benign Management: Surgical Consultation of the right breast. Electronically signed and approved by: Gerardo Smith M.D. Radiologis
== END ==
LOC: RADUSWWP 12:28
PROVIDERS: ATTEND Surgery
DX: N62 Hypertrophy of breast (principal); Z79.01 Long term (current) use of anticoagulants
CPT/HCPCS: 88305; 85610; 85730; 19083; A4648

== ENCOUNTER → 2023-07-13 | Outpatient (CLI) | payer BC ==
--- NOTE | 2023-07-13 09:53 | P.PN ---
Subjective Progress Note Date: 07/13/23 Principal diagnosis: gynecomastia mass right breast Arthur is a 62 year old male seen in consultation for Dr. Martinez regarding a mass in his left breast. He had a right breast ultrasound done on 05-15-23 which showed a 1.3 by .9 cm irregular lesion behind the right aerola. The patient noted this area about 7 weeks ago. It has not increased in size. The nipple felt sensitive. He has not noted anything in the left breast. He has not had any surgery on his breast. No recent change in medication. He does take spironolactone, protonix, The core biopsy of the right breast and 06-27-2023 which was positive for gynecomastia. He tolerated the procedure without difficulty. Caffiene: 2 bottles of coke daily nicotine: none hormones: none chocolate: occasional Family History: sister: lung cancer father: of chirosis he was a heavy drinker Surgical History: open heart surgery: mitral valve repair multiple conversions ablation umbilical hernia gallbladder open Medical History: heart disease Social History: nicotine: none alcohol: beer occasional drugs: none - Constitutional Constitutional: Denies chills, Denies fever - EENT Eyes: denies blurred vision, denies pain Ears: deny: decreased hearing, tinnitus Ears, nose, mouth and throat: Denies headache, Denies sore throat - Breasts Breasts: bilateral: as per HPI - Cardiovascular Cardiovascular: Reports as per HPI - Respiratory Respiratory: Denies cough - Gastrointestinal Gastrointestinal: Denies abdominal pain, Denies diarrhea, Denies nausea, Denies vomiting - Genitourinary (Male) Genitourinary: Denies dysuria, Denies hematuria - Musculoskeletal Comment: spasms at times in upper thighs - Integumentary Integumentary: Denies pruritus, Denies rash - Neurological Neurological: Denies numbness, Denies weakness - Psychiatric Psychiatric: Denies anxiety, Denies depression - Endocrine Endocrine: Denies fatigue, Denies weight change - Hematologic/Lymphatic Comment: warfin daily - Allergic/Immunologic Allergic/Immunologic: Reports as per HPI Past Medical History Past Medical History: Atrial Fibrillation, GERD/Reflux Additional Past Medical History / Comment(s): "fatty spots of liver", 2 bulging disc, 2 herniated disc lower back with DDD, possible TIA History of Any Multi-Drug Resistant Organisms: None Reported Past Surgical History: Cardiac Ablation, Cardiac Valve Replacement Additional Past Surgical History / Comment(s): open heart (2004) with mvp replacement with maze procedure. cardioversion x2, occasional vertigo. shingles 2018 Past Anesthesia/Blood Transfusion Reactions: No Reported Reaction Past Psychological History: No Psychological Hx Reported Smoking Status: Never smoker Past Alcohol Use History: Occasional Additional Past Alcohol Use History / Comment(s): rare social smoker 20 years ago Past Drug Use History: None Reported - Past Family History Father Family Medical History: Liver Disease Additional Family Medical History / Comment(s): cirrhosis liver Sister(s) Family Medical History: Cancer, COPD, Deep Vein Thrombosis (DVT) Mother Additional Family Medical History / Comment(s): brain hemorrhage Brother(s) Additional Family Medical History / Comment(s): brother at age 54 from [facility] Medications and Allergies Home Medications Medication Instructions Recorded Confirmed Type Cholecalciferol [Vitamin D3 (25 1,000 unit PO DAILY 05/04/18 06/16/23 History Mcg = 1000 Iu)] Pantoprazole [Protonix] 40 mg PO DAILY 05/04/18 06/16/23 History Warfarin Sodium [Coumadin] 4 mg PO HS 05/04/18 06/16/23 History Ascorbic Acid [Vitamin C] 1,000 mg PO DAILY 04/15/20 06/16/23 History carvediloL [Coreg] 25 mg PO BID 04/15/20 06/16/23 History amLODIPine [Norvasc] 5 mg PO DAILY #30 tab 04/16/20 06/16/23 Rx Allergies Allergy/AdvReac Type Severity Reaction Status Date / Time lisinopril AdvReac Cough Verified 06/16/23 10:36 Objective - Constitutional General appearance: Present: cooperative - Neck Neck: Present: normal ROM - Integumentary Integumentary Comment(s): Biopsy site clean and dry - Musculoskeletal Musculoskeletal: Present: gait normal - Psychiatric Psychiatric: Present: A&O x's 3 Assessment and Plan Assessment: Gynecomastia right breast/to be related to spironolactone Plan: Repeat right breast ultrasound in 6 months with examination Consider changing spironolactone/to follow-up with primary care doctor CC: Dr. Martinez
[2023-07-13 10:21] VITALS: BP 159/80; PULSE 88; RESP 16; TEMP 97.9
== END ==
LOC: WWCWWP 09:33
PROVIDERS: ATTEND Surgery
DX: R92.8 Other abnormal and inconclusive findings on diagnostic imaging of breast (principal); N62 Hypertrophy of breast; N63.10 Unspecified lump in the right breast, unspecified quadrant; L98.8 Other specified disorders of the skin and subcutaneous tissue; Z88.8 Allergy status to other drugs, medicaments and biological substances; Z87.891 Personal history of nicotine dependence

== ENCOUNTER → 2023-08-22 | Outpatient (CLI) | payer BC ==
[2023-08-22 15:30] LABS: Blood Urea Nitrogen 13.2 mg/dL (9.0-27.0); Calcium 8.9 mg/dL (8.7-10.3); Carbon Dioxide 26.6 mmol/L (21.6-31.8); Chloride 102 mmol/L (96-109); Glucose 124 mg/dL (70-110); Potassium 4.1 mmol/L (3.5-5.5); Sodium 138 mmol/L (135-145)
[2023-08-22 15:39] LABS: NT-Pro-B-Type Natriuretic Pept 421 pg/mL (0-125)
== END | disposition home or self-care (01) ==
LOC: LABWHC1 08:30
PROVIDERS: ATTEND Internal Medicine Cardiovascular Disease
DX: I50.22 Chronic systolic (congestive) heart failure (principal)
CPT/HCPCS: 36415; 80048; 83880

== ENCOUNTER → 2024-10-07 | Day surgery (SDC) | payer BC ==
[~2024-10-07] MED LIST: LIDOCAINE 2% (PF) 20 MG/ML 5 ML VIAL ONE; PROPOFOL 10 MG/ML 20 ML VIAL IV ONE
[2024-10-07] MEDS: IV FLUID CONTINUATION 1,000 ML IV ONE (09:19)
[2024-10-07 09:24] VITALS: TEMP 97.5
[2024-10-07] MEDS: LACTATED RINGERS 1,000 ML IV SCH (09:35)
--- NOTE | 2024-10-07 10:24 | P.PCN ---
Date of Procedure: 10/07/24 Preoperative Diagnosis: Screening Postoperative Diagnosis: Descending colon polyp and sigmoid colon polyp Procedure(s) Performed: Colonoscopy with hot snare polypectomy Anesthesia: MAC Surgeon: Mina Bolaños Pathology: other (Sigmoid polyp, descending colon polyp) Condition: stable Disposition: same day Indications for Procedure: 64-year-old male presents today for screening colonoscopy. He has had history of polyps in the past. Denies any significant bleeding per rectum. Plan for colonoscopy. Risks, benefits and alternatives provided to the patient. All questions answered prior to attending the endoscopy suite. Operative Findings: Descending colon polyp and sigmoid colon polyp Description of Procedure: The patient was brought to the endoscopy suite and placed in left lateral decubitus position and adequate sedation was achieved using conscious sedation. Digital rectal exam was performed and mild internal hemorrhoids were palpated. An endoscope was then placed in the rectum and advanced to the cecum as identified by landmarks including the appendiceal orifice and the ileocecal valve. The prep was good. The colonoscope was then slowly withdrawn, examining for any mucosal abnormalities. The cecum, ascending, transverse, descending and sigmoid colon were visualized adequately. There were no large neoplastic lesions noted throughout the colon. Small polyps were encountered in the sigmoid colon in the descending colon. These were removed with hot snare polypectomy. Hemostasis maintained. No significant evidence of diverticulosis. Hemostasis was maintained. Retroflexion was performed in the rectum and internal hemorrhoids. Excess air was removed, the colonoscope withdrawn and the procedure terminated. The patient was then transferred to the recovery unit in stable condition. Repeat colonoscopy should be performed in 3 years.
[2024-10-07 10:29] VITALS: RESP 14
[2024-10-07 10:45] VITALS: BP 123/77; PULSE 79
== END | disposition home or self-care (01) ==
LOC: ORWHC2ENDO 09:01
PROVIDERS: ATTEND Surgery
DX: Z12.11 Encounter for screening for malignant neoplasm of colon (principal); K63.5 Polyp of colon; K64.8 Other hemorrhoids; I48.91 Unspecified atrial fibrillation; I10 Essential (primary) hypertension; K21.9 Gastro-esophageal reflux disease without esophagitis; K76.0 Fatty (change of) liver, not elsewhere classified; Z79.01 Long term (current) use of anticoagulants; Z79.899 Other long term (current) drug therapy; Z88.8 Allergy status to other drugs, medicaments and biological substances
CPT/HCPCS: 88305; 45385; J2704; J2003; 45380